=== PATIENT | female | born 1945 | race Caucasian/White ===

== ENCOUNTER 2017-10-01 09:24 | Day surgery (SDC) | payer MEDICARE, BC ==
[2017-10-01] MEDS ORDERED: Sodium Chloride 0.9% 1,000 ML IV SCH (09:30)
[2017-10-01] MEDS ORDERED: Sodium Chloride 0.9% 5 ML Syringe FLUSH PRN (09:30)
[2017-10-01] MEDS ORDERED: fentaNYL 100 MCG/2 ML SDV ONE (09:35)
[2017-10-01] MEDS ORDERED: Midazolam 1 MG/ML 2 ML SDV ONE (09:35)
[2017-10-01] MEDS ORDERED: Propofol 200 MG/20 ML SDV ONE ×2 (09:36→10:29)
[2017-10-01] MEDS ORDERED: EPINEPHrine 1:10,000 1 MG/10 ML Syringe ONE (10:03)
[2017-10-01 10:48] LABS: SODIUM,NA 130 mmol/L (136-145)
[2017-10-01 11:01] LABS: CHLORIDE,CL 88 mmol/L (98-115)
[2017-10-01] MEDS ORDERED: fentaNYL 100 MCG/2 ML SDV IV ONE (11:10)
[2017-10-01] MEDS ORDERED: Midazolam 1 MG/ML 2 ML SDV IV ONE (11:10)
[2017-10-01] MEDS ORDERED: Propofol 200 MG/20 ML SDV IV ONE (11:10)
[2017-10-01] MEDS ORDERED: ePHEDrine 50 MG/ML SDV IV ONE (11:10)
[2017-10-01] MEDS ORDERED: Potassium Chloride 20 MEQ in Premix Bag 1 BAG IV ONE (11:14)
--- NOTE | 2017-10-01 12:04 | PCM.PRNOTE ---
- Free Text/Narrative Note: INFORMED CONSENT: Patient is here today for elective colonoscopy. All aspects of this procedure have been discussed with the patient. All possible complications also, including possibility of perforation, infection, pain, bleeding and unknown complications. In the event of perforation patient may need to have abdominal exploration, colon resection, colostomy and even was discussed. Anesthetic complications were handled by anesthesia department. The patient understands fully well. Patient did not have any further questions for me at the end of my interview. The patient wishes for me to proceed. PREOPERATIVE DIAGNOSIS/INDICATIONS: [Positive: Regard test] POSTOPERATIVE DIAGNOSIS: [A few diverticuli present otherwise negative colonoscopy] INSTRUMENT USED: Olympus videocolonoscope. ASA CLASSIFICATION: [2] ANESTHESIA: Continuous EKG, oximetry and intermittent blood pressure and respiratory monitoring were performed throughout the procedure. IV Versed and Fentanyl were administered. PROCEDURE PERFORMED: Colonoscopy POSITIONS OF PATIENT: Left lateral. RECTUM: Normal. SIGMOID COLON: Normal except for a few diverticuli. DESCENDING COLON: Normal. SPLENIC FLEXURE: Normal. TRANSVERSE COLON: Normal. HEPATIC FLEXURE: Normal. ASCENDING COLON: Normal. CECUM: Normal. ILEOCECAL VALVE: Normal. BIOPSY: None. TOLERANCE: Excellent. COMPLICATIONS: None.
== END 2017-10-01 14:00 | disposition home or self-care (01) ==
LOC: KA.SDS 09:24
PROVIDERS: ATTEND Family Medicine
DX: K57.30 Diverticulosis of large intestine without perforation or abscess without bleeding (principal); I10 Essential (primary) hypertension; R73.03 Prediabetes; Z79.82 Long term (current) use of aspirin; Z79.84 Long term (current) use of oral hypoglycemic drugs; Z79.899 Other long term (current) drug therapy
CPT/HCPCS: 00811; 80048; J2250; J2704; J3010; J3480